=== PATIENT | male | born 1995 | race Two or more races ===

== ENCOUNTER 2020-07-15 06:19 | Day surgery (SDC) | payer OTHER ==
[2020-07-09 12:39] LABS: Basophils # (auto) 0 10 ^3/uL (0-0.2); Basophils % (auto) 0.6 % (0.0-2.0); Eosinophils # (auto) 0.1 10 ^3/uL (0-0.8); Eosinophils % (auto) 1.4 % (0.0-7.0); Hematocrit 48.5 % (41.0-53.0); Hemoglobin 16.3 g/dL (13.5-17.5); Lymphocytes # (auto) 1.2 10 ^3/uL (0.4-5.4); Lymphocytes % (auto) 15.9 % (10.0-50.0); Mean Corpuscular Hemoglobin 29.5 pg (28.0-32.0); Mean Corpuscular Hgb Conc. 33.6 g/dL (32.0-36.0); Mean Corpuscular Volume 87.7 fL (80.0-100.0); Monocytes # (auto) 0.7 10 ^3/uL (0-1.3); Monocytes % (auto) 9.3 % (0.0-12.0); Neutrophils # (auto) 5.4 10 ^3/uL (1.6-8.6); Neutrophils % (auto) 72.8 % (37.0-80.0); Nucleated Red Blood Cells % 0.4 %; Platelet Count (auto) 211 10^3/uL (140-450); Red Blood Cells 5.53 10^6/uL (4.5-5.90); Red Cell Distribution Width 13.1 % (11.8-14.3); White Blood Cell 7.5 10^3/uL (4.4-10.8)
[2020-07-09 12:53] LABS: INR 1.08 (0.9-1.15); Partial Thromboplastin Time 30.8 sec (23.0-31.2)
[2020-07-09 13:03] LABS: Potassium 4.2 mmol/L (3.5-5.1)
[2020-07-09 13:10] LABS: Albumin 4.5 g/dL (3.4-5.0); BUN/Creatinine Ratio 14.9; Bilirubin, Total 0.4 mg/dL (0.2-1.0); Calcium 8.9 mg/dL (8.5-10.1); Total Protein 8.2 g/dL (6.4-8.2)
[2020-07-09 14:40] LABS: Urine WBC None Seen /hpf (0 - 3)
[2020-07-09 14:54] LABS: Urine Bacteria NONE SEEN /hpf (None Seen); Urine Blood Negative /uL (Negative); Urine Specific Gravity 1.007 (1.001-1.035)
[~2020-07-15] VITALS: Ht 185.4 cm; Wt 95.3 kg
[~2020-07-15 06:19] MED LIST: CLOM50TA PO
[2020-07-15] MEDS ORDERED: ceFAZolin 1GM/50ML 50 ML IV ONE (07:52)
[2020-07-15] MEDS ORDERED: PROPOFOL 10 MG/ML 20 ML IV ONE (08:11)
[2020-07-15] MEDS ORDERED: ONDANSETRON HCL 4 MG/2 ML VIAL ONE (08:11)
[2020-07-15] MEDS ORDERED: MIDAZOLAM HCL 1MG/1ML-2 ML VIAL ONE (08:11)
[2020-07-15] MEDS ORDERED: SODIUM CHLORIDE LOCK 10 ML ONE (08:11)
[2020-07-15] MEDS ORDERED: fentaNYL CITRATE 100 MCG/2 ML VL ONE (08:11)
[2020-07-15] MEDS ORDERED: MEPERIDINE HCL (25 MG/ML) 1ML VIAL ONE (08:11)
[2020-07-15] MEDS ORDERED: LIDOCAINE W/ EPINEPHRINE 1% 20ML VIAL ONE (08:52)
[2020-07-15] MEDS ORDERED: NEOMYCIN-BACITRACIN-POLYM 15GM TOP OINT TOP ONE (08:52)
[2020-07-15 10:57] VITALS: BP 117/72
== END 2020-07-15 11:10 | disposition home or self-care (01) ==
LOC: SUR 06:19
PROVIDERS: ATTEND Urology
DX: I86.1 Scrotal varices (principal); M19.90 Unspecified osteoarthritis, unspecified site; Z98.890 Other specified postprocedural states; Z79.899 Other long term (current) drug therapy; Z20.828 Contact with and (suspected) exposure to other viral communicable diseases
CPT/HCPCS: 36415; 55530; 80053; 81001; 85025; 85610; 85730; 88304; J0690; J2175; J2250; J2405; J2704; J3010; J7030; U0003